=== PATIENT | male | born 1980 | race Two or more races ===

== ENCOUNTER 2019-03-29 15:43 | Emergency (ER) | payer OTHER ==
[~2019-03-29] VITALS: Ht 162.6 cm; Wt 72.6 kg
[2019-03-29 15:50] VITALS: BP 137/85
--- NOTE | 2019-03-29 16:00 | NUR ---
ED Nurse Note: Patient presents to ER due to left foot pain, swelling and bruise. Per patient, the oven door fell onto the left foot. Scab on the dorsal aspect of left foot noted without redness. Patient able to wiggle left toes and cap refill <3 secs. Provided comfort measures.
--- NOTE | 2019-03-29 17:20 | Emergency Room Report ---
History of Present Illness General Chief Complaint: Lower Extremity Injury Source: Patient Present Illness HPI 38-year-old male with no significant past medical history here complaining of left foot pain after oven door dropped on his left foot a day ago. Patient is rating the pain 7 out of 10 without radiation and mostly upon palpation of the affected area. Has full range of motion able to move his toes and denies tingling numbness. Denies ankle pain, calf pain calf tenderness. Patient has been applying ice to the affected area and taken ibuprofen or Tylenol for pain with minimal relief. Denies all other injury, head injury, chest pain, shortness of breath, palpitation although all other associated symptoms. Patient reports that this is a work-related injury Allergies: Coded Allergies: No Known Allergies (Unverified , 03/29/19) Patient History Past Medical History: see triage record Past Surgical History: unable to obtain Pertinent Family History: none Immunizations: UTD Reviewed Nursing Documentation: PMH: Agreed; PSxH: Agreed Nursing Documentation-PM Past Medical History: No Stated History Review of Systems All Other Systems: negative except mentioned in HPI Physical Exam Vital Signs Date Time Temp Pulse Resp B/P (MAP) Pulse Ox O2 Delivery O2 Flow Rate FiO2 03/29/19 15:50 97.5 64 18 137/85 (102) 96 Room Air Sp02 EP Interpretation: reviewed, normal General Appearance: normal inspection, well appearing, no apparent distress Head: normocephalic Eyes: bilateral eye normal inspection, bilateral eye PERRL ENT: normal ENT inspection, normal pharynx Neck: normal inspection, full range of motion, supple Respiratory: normal inspection, chest non-tender, lungs clear, no rhonchi, no wheezing Cardiovascular #1: normal inspection, regular rate, rhythm, no edema, normal capillary refill Cardiovascular #2: 2+ dorsalis pedis (R), 2+ dorsalis pedis (L) Gastrointestinal: normal inspection, non tender, soft Genitourinary: no CVA tenderness Musculoskeletal: digits/nails normal, gait/station normal, normal range of motion, no calf tenderness, swelling - Left foot Neurologic: normal inspection, alert, oriented x3 Psychiatric: normal inspection, judgement/insight normal Skin: normal inspection, normal color, other - No ecchymosis noted Lymphatic: normal inspection, no adenopathy Medical Decision Making PA Attestation All my diagnosis and treatment plans were reviewed ad discussed with my supervising physician Dr. Tsai Diagnostic Impression: Primary Impression: Contusion of left foot ER Course 38-year-old male with no significant past medical history here complaining of left foot pain after oven door dropped on his left foot a day ago. Patient is rating the pain 7 out of 10 without radiation and mostly upon palpation of the affected area. Has full range of motion able to move his toes and denies tingling numbness. Denies ankle pain, calf pain calf tenderness. Patient has been applying ice to the affected area and taken ibuprofen or Tylenol for pain with minimal relief. Denies all other injury, head injury, chest pain, shortness of breath, palpitation although all other associated symptoms. Patient reports that this is a work-related injury Ddx considered but are not limited to: ankle sprain, ankle strain, ankle fracture, ankle contusion , left foot fx, sprain/strain/contusion Vital signs: are WNL, pt. is afebrile H&PE are most consistent with: Foot contusion ORDERS: Left foot x-ray, naproxen ED INTERVENTIONS:iburofen, left post op shoe DISCHARGE: At this time pt. is stable for d/c to home. Will provide printed patient care instructions, and any necessary prescriptions. Care plan and follow up instructions have been discussed with the patient prior to discharge. Keep your foot elevated, alternate between icing and heating follow-up with your primary care provider avoid strenuous physical activity take medication as directed. Other X-Ray Diagnostic Results Other X-Ray Diagnostic Results : X-Ray ordered: left foot # of Views/Limited Vs Complete: 3 View Indication: Pain EP Interpretation: Yes PA Xray: Interpretation reviewed, by supervising MD, and agrees with findings. Interpretation: no dislocation, no soft tissue swelling, no fractures Impression: No acute disease Electronically Signed by: varinder DOMINIQUE Scribe Text EXAM: XR Left Foot Complete, 3 or More Views CLINICAL HISTORY: TRAUMA TECHNIQUE: Frontal, lateral and oblique views of the left foot. COMPARISON: No relevant prior studies available. FINDINGS: Bones/joints: Unremarkable. No visible displaced fracture. No dislocation. No osseous erosions. Visualized joint spaces appear unremarkable. Soft tissues: Unremarkable. No radiopaque foreign body. IMPRESSION: Unremarkable left foot x-rays. Last Vital Signs Date Time Temp Pulse Resp B/P (MAP) Pulse Ox O2 Delivery O2 Flow Rate FiO2 03/29/19 15:50 97.5 64 18 137/85 (102) 96 Room Air Disposition: HOME, SELF-CARE Condition: Stable Scripts Naproxen* (NAPROXEN*) 500 Mg Tablet 500 MG ORAL TWICE A DAY, #30 TAB Prov: Varinder Montes 03/29/19 Patient Instructions: Foot Contusion Additional Instructions: Take medication as directed follow-up with your primary care provider alternate between icing and heating the affected area avoid strenuous physical activity Varinder Montes Mar 29, 2019 17:20
[2019-03-29] MEDS ORDERED: NAPROXEN500 M2 ORAL (17:21)
--- NOTE | 2019-03-29 17:33 | NUR ---
ER DISCHARGE NOTE: Post-op shoe applied to left foot. Patient is being discharged from medical care. Awake, alert and oriented x4. After care instructions, including prescriptions were given. Patient verbalized understanding of After care instructions. ID band were removed. Patient ambulated out with all personal belongings with steady gait.
== END 2019-03-29 17:34 | disposition home or self-care (01) ==
LOC: EMR 17:15
DX: S90.32XA Contusion of left foot, initial encounter (principal); W20.8XXA Other cause of strike by thrown, projected or falling object, initial encounter; Y92.9 Unspecified place or not applicable
CPT/HCPCS: 99283